=== PATIENT | female | born 1945 | race Hispanic/Latino ===

== ENCOUNTER 2023-01-09 07:26 | Outpatient (CLI) | payer MEDICARE, OTHER | END 2023-01-09 07:27 | disposition home or self-care (01) | LOC: CSHULT 07:26 | PROVIDERS: ATTEND Internal Medicine Gastroenterology | DX: K76.0 Fatty (change of) liver, not elsewhere classified (principal); Z86.010 Personal history of colon polyps; C50.919 Malignant neoplasm of unspecified site of unspecified female breast | CPT/HCPCS: 76705 ==

== ENCOUNTER 2024-01-08 13:06 | Outpatient (CLI) | payer MEDICARE, OTHER | END 2024-01-08 13:07 | disposition home or self-care (01) | LOC: CSHMRI 13:06 | PROVIDERS: ATTEND Pain Medicine Pain Medicine | DX: R20.0 Anesthesia of skin (principal); M47.812 Spondylosis without myelopathy or radiculopathy, cervical region; M48.02 Spinal stenosis, cervical region; M48.03 Spinal stenosis, cervicothoracic region; M47.814 Spondylosis without myelopathy or radiculopathy, thoracic region; R90.89 Other abnormal findings on diagnostic imaging of central nervous system | CPT/HCPCS: 72156; 72157; 82565 ==

== ENCOUNTER 2024-06-25 12:54 | Outpatient (CLI) | payer MEDICARE, OTHER ==
[~2024-06-25 12:54] MED LIST: Magnevist 469MG/ML 20 ML VIAL ONE
== END 2024-06-25 12:55 | disposition home or self-care (01) ==
LOC: CSHMRI 12:54
PROVIDERS: ATTEND Psychiatry & Neurology Neurology
DX: G95.9 Disease of spinal cord, unspecified (principal); R20.0 Anesthesia of skin; R20.2 Paresthesia of skin; R93.89 Abnormal findings on diagnostic imaging of other specified body structures; N28.9 Disorder of kidney and ureter, unspecified
CPT/HCPCS: 36415; 70553; 72156; 72157; 76376; 82565